=== PATIENT | female | born 1950 | race Caucasian/White ===

== ENCOUNTER 2020-06-03 06:04 | Outpatient (REF) | payer MEDICARE, SELFPAY ==
[2020-06-03 11:11] LABS: Hematocrit 37.6 % (37-47); Hemoglobin 11.9 g/dl (12.0-16.0); Mean Corpuscular HGB Conc 31.6 g/dl (31.0-35.0); Mean Corpuscular Hemoglobin 29.7 pg (27.0-33.0); Mean Corpuscular Volume 93.8 fL (80-98); Mean Platelet Volume 11.8 fL (9.4-12.3); Platelet Count 187 X10*3/uL (160-400); Red Blood Count 4.01 X10*6/uL (4.20-5.50); Red Cell Distribution Width 12.3 % (11.0-16.0); White Blood Count 5.9 X10*3/uL (4.8-10.8)
[2020-06-03 11:28] LABS: Glucose Urine UA NEG (NEG); Leukocyte Esterase Urine NEG (NEG); Nitrite Urine NEG (NEG); Specific Gravity - Urine 1.015 (1.005-1.025); Urine Blood NEG (NEG); Urine Ketones NEG (NEG); Urine Protein NEG (NEG-TRACE)
[2020-06-03 11:34] LABS: Appearance Urine CLEAR; Color Urine YELLOW
[2020-06-03 11:41] LABS: Alanine Aminotransferase 22 U/L (0-31); Albumin Level 4.2 g/dL (3.5-5.0); Alkaline Phosphatase 57 U/L (39-117); Anion Gap 11 (12-20); Aspartate Amino Transferase 22 U/L (5-31); Bilirubin Total 0.4 mg/dL (0.0-1.0); Blood Urea Nitrogen 14 mg/dL (9-16); Calcium 9.4 mg/dL (8.4-10.2); Carbon Dioxide 31 mmol/L (22-29); Chloride 104 mmol/L (96-108); Cholesterol 187 mg/dL; Estimated Glomerular Filt Rate > 60; Glucose Fasting 108 mg/dL (60-99); HDL Cholesterol 67 mg/dL; LDL Cholesterol Calculated 98 mg/dl; Potassium 4.2 mmol/l (3.3-5.1); Sodium 142 mmol/L (135-145); Total Protein 6.2 g/dL (6.5-8.0); Triglycerides 114 mg/dL
[2020-06-03 12:07] LABS: Thyroid Stimulating Hormone 1.44 mIU/mL (0.32-4.0); Vitamin D 25-OH Total 41.1 ng/mL (>30)
== END 2020-06-03 06:05 | disposition home or self-care (01) ==
LOC: HO.HMGCLDS 06:04
PROVIDERS: PCP Internal Medicine; Visit Provider Internal Medicine
DX: Z00.00 Encounter for general adult medical examination without abnormal findings (principal); F32.9 Major depressive disorder, single episode, unspecified; M85.80 Other specified disorders of bone density and structure, unspecified site; E78.5 Hyperlipidemia, unspecified
CPT/HCPCS: 36415; 80053; 80061; 81003; 82306; 84443; 85027

== ENCOUNTER 2022-08-24 08:10 | Outpatient (REF) | payer MEDICARE, SELFPAY ==
[2022-08-24 11:13] LABS: MANUAL DIFF FLAG NO
[2022-08-24 11:29] LABS: Basophils Percent Auto 0.6 % (0-2); Eosinophils Absolute Auto 0.1 X10*3/uL (0.0-0.4); Eosinophils Percent Auto 2.1 % (0-4); Hematocrit 39.2 % (37.0-47.0); Hemoglobin 12.7 g/dl (12.0-16.0); Imm Gran Abs Auto 0.06 X10*3/uL (0.00-0.03); Lymphocytes Percent Auto 31.3 % (20-40); Mean Corpuscular HGB Conc 32.4 g/dl (31.0-35.0); Mean Corpuscular Hemoglobin 29.9 pg (27.0-33.0); Mean Corpuscular Volume 92.2 fL (80.0-98.0); Mean Platelet Volume 11.6 fL (9.4-12.3); Monocytes Absolute Auto 0.6 X10*3/uL (0.1-1.2); Monocytes Percent Auto 9.1 % (2-11); Neutrophils Absolute Auto 3.5 x10*3/uL (2.0-8.3); Neutrophils Percent Auto 55.9 % (45-73); Platelet Count 247 X10*3/uL (160-400); Red Blood Count 4.25 X10*6/uL (4.20-5.50); White Blood Count 6.3 X10*3/uL (4.8-10.8)
[2022-08-24 13:25] LABS: Alanine Aminotransferase 38 U/L (0-31); Albumin Level 4.2 g/dL (3.5-5.0); Alkaline Phosphatase 61 U/L (39-117); Anion Gap 11 (12-20); Aspartate Amino Transferase 27 U/L (5-31); Bilirubin Total 0.5 mg/dL (0.0-1.0); Blood Urea Nitrogen 18 mg/dL (9-16); Calcium 9.1 mg/dL (8.4-10.2); Carbon Dioxide 31 mmol/L (22-29); Chloride 103 mmol/L (96-108); Cholesterol 153 mg/dL; Estimated Glomerular Filt Rate > 60; Glucose Fasting 126 mg/dL (60-99); HDL Cholesterol 48 mg/dL; LDL Cholesterol Calculated 88 mg/dl; Potassium 4.3 mmol/L (3.3-5.1); Sodium 141 mmol/L (135-145); TSH reflex Free T4 0.81 uIU/mL (0.32-4.0); Total Protein 6.2 g/dL (6.5-8.0); Triglycerides 85 mg/dL; Vitamin D 25-OH Total 44.7 ng/mL (>30)
== END 2022-08-24 08:11 | disposition home or self-care (01) ==
LOC: HO.HMGCLDS 08:10
PROVIDERS: PCP Internal Medicine; Visit Provider Internal Medicine
DX: M85.80 Other specified disorders of bone density and structure, unspecified site (principal); E78.5 Hyperlipidemia, unspecified; E55.9 Vitamin D deficiency, unspecified
CPT/HCPCS: 36415; 80053; 80061; 82306; 84443; 85025

== ENCOUNTER 2022-09-13 11:31 | Outpatient (REF) | payer MEDICARE, SELFPAY ==
--- NOTE | ~2022-09-13 | US_ITS ---
EXAMINATION: US THYROID CLINICAL INFORMATION: Nontoxic single thyroid nodule. COMPARISON: Ultrasound thyroid 04/19/2018. TECHNIQUE: Linear transducer grayscale and color Doppler examination with attention to the region of the thyroid. FINDINGS: SIZE: Measurements of the thyroid lobes and nodules are given in sagittal, anteroposterior and transverse dimensions respectively. Right Thyroid Lobe: 4.18 x 1.19 x 1.68 cm, volume 4.35 mL. Previously 4.3 x 1.5 x 1.8 cm, volume 6.1 mL. Parenchyma: The gland echotexture is heterogeneous. Thyroid vascularity is increased. Left Thyroid Lobe: 4.50 x 1.19 x 1.42 cm, volume 4.0 mL. Previously 3.7 x 1.3 x 1.4 cm, volume 3.5 mL. Parenchyma: The gland echotexture is heterogeneous. Thyroid vascularity is increased. Isthmus: 0.21 cm in maximum AP dimension. Previously 0.20 cm. Estimated total number of nodules greater than or equal to 1 cm: 0. [place] nodules are described as follows: 1. Location: Right superior. Size: 0.63 x 0.58 x 0.65 cm, volume 0.12 mL. Previously: 0.62 x 0.40 x 0.57 cm, volume 0.07 mL. Nodule characteristics: Composition: Spongiform (0). Echogenicity: Anechoic (0). Shape: Not taller than wide (0). Margins: Smooth (0). Echogenic Foci: None (0). ACR TI-RADS total points: 0 ACR TI-RADS category: 1 Significant change in size (>/= 20% in 2 dimensions and minimal increase of 2 mm or 50% or greater increase in volume): None Change in features: None . Change in ACR TI-RADS risk category: Not applicable 2. Location: Right mid. Size: 0.83 x 0.61 x 0.75 cm, volume 0.20 mL. Previously: 0.41 x 0.34 x 0.48 cm, volume 0.03 mL. Nodule characteristics: Composition: Spongiform (0). Echogenicity: Anechoic (0). Shape: Not taller than wide (0). Margins: Smooth (0). Echogenic Foci: None (0). ACR TI-RADS total points: 0 ACR TI-RADS category: 1 Significant change in size (>/= 20% in 2 dimensions and minimal increase of 2 mm or 50% or greater increase in volume): None Change in features: None Change in ACR TI-RADS risk category: Not applicable 3. Location: Right inferior. Size: 0.59 x 0.60 x 0.74 cm, volume 0.14 mL. Previously: 0.70 x 0.50 x 0.70 cm, volume 0.13 mL. Nodule characteristics: Composition: Spongiform (0). Echogenicity: Anechoic (0). Shape: Not taller than wide (0). Margins: Smooth (0). Echogenic Foci: None (0). ACR TI-RADS total points: 0 ACR TI-RADS category: 1 Significant change in size (>/= 20% in 2 dimensions and minimal increase of 2 mm or 50% or greater increase in volume): None Change in features: None Change in ACR TI-RADS risk category: Not applicable 4. Location: Left mid. New. Size: 0.58 x 0.30 x 0.51 cm, volume 0.05 mL. Previously: Not seen on the previous study. Nodule characteristics: Composition: Spongiform (0). Echogenicity: Anechoic (0). Shape: Not taller than wide (0). Margins: Smooth (0). Echogenic Foci: None (0). ACR TI-RADS total points: 0 ACR TI-RADS category: 1 5. Location: Left mid lateral. New. Size: 0.35 x 0.20 x 0.40 cm, volume 0.01 mL. Previously: Not seen on the previous study. Nodule characteristics: Composition: Spongiform (0). Echogenicity: Anechoic (0). Shape: Not taller than wide (0). Margins: Smooth (0). Echogenic Foci: None (0). ACR TI-RADS total points: 0 ACR TI-RADS category: 1 NODES: No lymphadenopathy is seen in the tissue surrounding the thyroid gland. US/US thyroid IMPRESSION: Heterogeneous slightly hypervascular thyroid gland likely hypothyroidism. Bilateral nonsuspicious subcentimeter thyroid nodules. TR1 (0 point) and TR 2 (2 points). TR4 (4-6 points): FNA if more than or equal to 1.5 cm in maximum dimension, followup ultrasound in 1, 2, 3 and 5 years if 1 to 1.4 cm in maximum dimension. TR5 (more than or equal to 7 points): FNA if more than or equal to 1 cm in maximum dimension, followup ultrasound every year for 5 years if 0.5 to 0.9 cm in maximum dimension.
== END 2022-09-13 11:32 | disposition home or self-care (01) ==
LOC: HO.HMGCX 11:31
PROVIDERS: PCP Internal Medicine; Visit Provider Internal Medicine
DX: E04.1 Nontoxic single thyroid nodule (principal)
CPT/HCPCS: 76536

== ENCOUNTER 2022-10-26 07:10 | Outpatient (REF) | payer MEDICARE, SELFPAY ==
[2022-10-26 11:25] LABS: Estimated Average Glucose 131 mg/dL; Hemoglobin A1C 149.4106 umol/L; Hemoglobin A1c % 6.2 %
[2022-10-26 11:26] LABS: Alanine Aminotransferase 20 U/L (0-31); Albumin Level 4.1 g/dL (3.5-5.0); Alkaline Phosphatase 58 U/L (39-117); Anion Gap 10 (12-20); Aspartate Amino Transferase 23 U/L (5-31); Bilirubin Total 0.6 mg/dL (0.0-1.0); Blood Urea Nitrogen 16 mg/dL (9-16); Calcium 9.5 mg/dL (8.4-10.2); Carbon Dioxide 31 mmol/L (22-29); Chloride 106 mmol/L (96-108); Estimated Glomerular Filt Rate > 60; Glucose Fasting 126 mg/dL (60-99); Potassium 4.4 mmol/L (3.3-5.1); Sodium 143 mmol/L (135-145)
== END 2022-10-26 07:11 | disposition home or self-care (01) ==
LOC: HO.HMGCLDS 07:10
PROVIDERS: PCP Internal Medicine; Visit Provider Internal Medicine
DX: R73.9 Hyperglycemia, unspecified (principal)
CPT/HCPCS: 36415; 80053; 83036

== ENCOUNTER 2023-03-16 06:35 | Outpatient (REF) | payer MEDICARE, SELFPAY ==
[2023-03-16 11:50] LABS: Estimated Average Glucose 108 mg/dL; Hemoglobin A1c % 5.4 %
[2023-03-16 12:11] LABS: Alanine Aminotransferase 22 U/L (0-31); Albumin Level 4.2 g/dL (3.5-5.0); Alkaline Phosphatase 62 U/L (39-117); Aspartate Amino Transferase 21 U/L (5-31); Bilirubin Total 0.8 mg/dL (0.0-1.0); Blood Urea Nitrogen 19 mg/dL (9-16); Calcium 9.9 mg/dL (8.4-10.2); Chloride 105 mmol/L (96-108); Cholesterol 155 mg/dL; Estimated Glomerular Filt Rate > 60; Glucose Fasting 104 mg/dL (60-99); HDL Cholesterol 68 mg/dL; LDL Cholesterol Calculated 73 mg/dl; Potassium 3.9 mmol/L (3.3-5.1); Sodium 141 mmol/L (135-145); Total Protein 6.5 g/dL (6.5-8.0); Triglycerides 73 mg/dL
[2023-03-16 12:29] LABS: TSH reflex Free T4 1.86 uIU/mL (0.32-4.0)
[2023-03-16 12:45] LABS: Creatinine Urine 126.27 mg/dL; Microalbum/Creatinine Ratio Ur 13.4 ug/mg cr
[2023-03-16 18:46] LABS: Carbon Dioxide 25 mmol/L (22-29)
== END 2023-03-16 06:36 | disposition home or self-care (01) ==
LOC: HO.HMGCLDS 06:35
PROVIDERS: PCP Internal Medicine; Visit Provider Internal Medicine
DX: E78.5 Hyperlipidemia, unspecified (principal); R73.9 Hyperglycemia, unspecified
CPT/HCPCS: 36415; 80053; 80061; 82043; 83036; 84443

== ENCOUNTER 2023-03-17 10:22 | Outpatient (AMB) | payer MEDICARE, SELFPAY ==
[2023-03-17 10:51] VITALS: BMI 19.3
--- NOTE | 2023-03-17 10:51 | A.OFFVIS_ITS ---
Intake VS Expanded 03/17/23 10:51 03/17/23 11:00 Height 5 ft 5 in 5 ft 5 in Weight 115 lb 11.883 oz 116 lb BMI 19.3 19.3 Intake Visit Reasons: Hyperglycemia Allergies naproxen Allergy (Unknown, Verified 03/25/23 14:27) rash acetaminophen [From Percocet] Allergy (Verified 03/25/23 14:27) Nausea oxycodone [From Percocet] Allergy (Verified 03/25/23 14:27) Nausea HPI Nutrition Presentation Details Pt presents for MNT for Hyperglycemia Pt reports working on reducing carbs however now losing weight . Makes own meals and pastries. Pastries are typically combination of nuts/oats/fruit or honey for flavor meal pattern reports having breakfast (oatmeal/nuts or eggs on whole wheat bread or yogurt nuts, omitting lunch , dinner consist of sweet potato/baked chicken and milk or yogurt or fruit. Reports keeping physically active has question regarding label ITE-Sstegtw-Th.Jeor Equation Height 5 ft 5 in Weight 116 lb Resting Metabolic Rate 1047.20 Calculated Activity Level Mild Activity Calories Needed to Maintain Weight 1439.90 Diagnosis Nutrition problem #1 unintended weight loss As related to (etiology) #1 inadequate oral intake As evidenced by (sign/symptom) #1 food recall and weight loss (10 lb in 3 months (from 125 lbs to 116 lbs)) Most Recent Diabetes Results: Microalb/Creat Ratio 13.4 ug/mg cr 03/16/23 Cholesterol 155 mg/dL 03/16/23 HDL Cholesterol 68 mg/dL 03/16/23 Triglycerides 73 mg/dL 03/16/23 Creatinine 0.64 mg/dL (0.5-1.4) 03/16/23 Blood Urea Nitrogen 19 mg/dL (9-16) H 03/16/23 Sodium 141 mmol/L (135-145) 03/16/23 Potassium 3.9 mmol/L (3.3-5.1) 03/16/23 Chloride 105 mmol/L (96-108) 03/16/23 Carbon Dioxide 25 mmol/L (22-29) 03/16/23 Calcium 9.9 mg/dL (8.4-10.2) 03/16/23 AST 21 U/L (5-31) 03/16/23 ALT 22 U/L (0-31) 03/16/23 Total Protein 6.5 g/dL (6.5-8.0) 03/16/23 Albumin 4.2 g/dL (3.5-5.0) 03/16/23 [facility] Medical History Annual physical exam Anxiety Eustachian tube dysfunction History of mammogram Hyperlipidemia IBS (irritable bowel syndrome) Migraine Normal colonoscopy Normal Pap smear Osteopenia determined by x-ray Thyroid nodule Vitamin D deficiency Surgical History H/O colonoscopy History of eyelid surgery Family History Father Diabetes mellitus Mother Breast cancer Alzheimer disease History of mastectomy Social History Housing: House Patient Tobacco Use Status: Never used Tobacco e-Cigarette/Vaping Use: Never Used Current occupational status: employed Cognitive needs: No Hearing needs: No Vision needs: Yes Assessment & Plan Assessment & Plan (1) Hyperglycemia: Code(s): R73.9 - Hyperglycemia, unspecified Plan: wt: 53 kg Est kcal needs as per MSJ: 1500 + 250/500 (40% carb, 30% protein/fat) Est fluid needs as per 25-30 ml/d: 1300- 1600 Est prot per day as per 1-1.2 g/kg bw: 53- 63 Recommend fiber intake : 8-10 g per day and gradually increase to 25-28 g per day for women and 35-38 g for men or as tolerated Recommend sodium intake per day : less than 2000 mg Educated patient on: ( R = reviewed V = verbalizes understanding N/R = needs review N/A = not applicable * Food sources of carbohydrate, adequate serving sizes and its role in various health conditions: R V * Differences between complex carbohydrates a simple carbohydrates, role of fiber in diet: R V * Differences between types of fats and role in diet (mono on saturated fat fatty acids, saturated fatty acids, trans fats): R ,v * Food sources of sodium in salt and healthy modifications for heart health in kidney health: R * Vitamins and minerals: R * Healthy plate method concept: R V * Physical activity: Benefits a precaution: R V * Dietary prevention of Hyperglycemia: R V Patient Instructions: Do not skip lunch : have glucerna or 1/2 sandw with vegetables Include a serving of protein with a serving of carb as snack Include MUFA in your diet, add 1 tsp of olive oil to 2 of your meals Coding Level of Care Code Nutr Indiv Intake (38589) Diagnoses Hyperglycemia R73.9 Time Spent (min) 40
[2023-03-29 11:24] VITALS: BMI 19.3
== END 2023-03-17 11:43 | disposition home or self-care (01) ==
PROVIDERS: PCP Internal Medicine; Visit Provider Dietitian, Registered
DX: R73.9 Hyperglycemia, unspecified (principal)

== ENCOUNTER → 2023-03-17 10:22 | Outpatient (BNVA) | payer MEDICARE, SELFPAY | PROVIDERS: PCP Internal Medicine; Visit Provider Dietitian, Registered | DX: R73.9 Hyperglycemia, unspecified (principal) | CPT/HCPCS: 97802 ==

== ENCOUNTER 2023-03-25 13:53 | Outpatient (AMB) | payer MEDICARE, SELFPAY ==
[2023-03-25 14:18] VITALS: BP 104/62; PULSE 98; O2SAT 97; BMI 19.1
--- NOTE | 2023-03-25 14:18 | A.OFFPC_ITS ---
Vital Signs 03/25/23 14:18 Height 5 ft 5 in Weight 115 lb BMI 19.1 BP 104/62 Blood Pressure Location Lt brachial Position Sitting Pulse 98 Pulse Source Pulse Oximeter Pulse Oximetry (%) 97 Oxygen Delivery Method Room Air Intake Visit Reasons: 4 Month follow up after labs dont Intake Note: Pt is here today for 4 months follow up visit on labs. Allergies naproxen Allergy (Unknown, Verified 03/25/23 14:27) rash acetaminophen [From Percocet] Allergy (Verified 03/25/23 14:27) Nausea oxycodone [From Percocet] Allergy (Verified 03/25/23 14:27) Nausea Medication List - Last Reconciled 03/25/23 by Leeanne Garcia MD aspirin 81 mg PO DAILY atorvastatin 20 mg PO DAILY cholecalciferol (vitamin D3) 25 mcg PO DAILY ciclopirox 8% 1 appl topical BEDTIME 4 weeks clonazepam 1 mg PO BEDTIME diphenoxylate-atropine 2.5-0.025 mg (Lomotil) 1 tab PO QID PRN duloxetine 120 mg PO DAILY ondansetron 4 mg PO Q8H PRN propranolol ER 60 mg PO DAILY pseudoephedrine HCl (Sudafed) 30 mg PO Q4-6H PRN sumatriptan 20 mg/actuation 20 mg intranasal Q2H triamcinolone acetonide 0.1% 1 appl topical DAILY turmeric root extract 500 mg PO DAILY [ultimate digestive probiotic 35 billion one capsule a day ] Tobacco use date assessed: 03/25/23 Fall risk assessment: No Falls in past year Last assessed Fall Risk: 03/25/23 Dental Screening Dental Screen Date: 03/25/23 Did you have a dental visit in the last 12 months?: Yes Did you have a dental problem in the last 6 months where you did not have access to dental care?: No Was dental information given to patient?: Patient has dentist HPI 4 Month follow up after labs dont HPI Details Pt presents for f/u diet controlled DM 2, improved. Pt has been atorvastatin for hyperlipidemia. Patient reports increased bruising since taking a baby aspirin. Patient had an episode of chest pain with elevated troponin but cardiac catheterization showed normal coronaries and no wall motion abnormalities. [facility] Medical History Annual physical exam Anxiety Eustachian tube dysfunction History of mammogram Hyperlipidemia IBS (irritable bowel syndrome) Migraine Normal colonoscopy Normal Pap smear Osteopenia determined by x-ray Thyroid nodule Vitamin D deficiency Surgical History H/O colonoscopy History of eyelid surgery Family History Father Diabetes mellitus Mother Breast cancer Alzheimer disease History of mastectomy Social History Housing: House Patient Tobacco Use Status: Never used Tobacco e-Cigarette/Vaping Use: Never Used Current occupational status: employed Cognitive needs: No Hearing needs: No Vision needs: Yes Questionnaire Thrive Questionnaire Date Thrive assessed: 08/31/22 AUDIT C Alcohol Use Questionnaire (AUDIT-C) 1. How often do you have a drink containing alcohol?: Monthly or less 2. How many drinks containing alcohol do you have on a typical day when you are drinking?: 1 or 2 3. How often do you have six or more drinks on one occasion?: Never Total Score: 1 DANNA-7 AMB Questionnaire DANNA-7 Date DANNA - 7 assessed: 08/31/22 Feeling nervous, anxious, or on edge: 0 = Not at all Not being able to stop or control worryin = Not at all Worrying too much about different things: 0 = Not at all Trouble relaxin = Not at all Being so restless that it is hard to sit still: 0 = Not at all Becoming easily annoyed or irritable: 0 = Not at all Feeling afraid as if something awful might happen: 0 = Not at all Total DANNA-7 score (0-4 normal; 5-9 mild; 10-14 moderate; 15-21 severe): 0 Source: Developed by Drs. New Farias, Kandis Gifford, Frankie Snell and colleagues, with an educational justine from [employer]. Review of Systems Const All systems reviewed & are unremarkable except as noted in HPI and below Reports no additional complaints Eyes Reports no additional complaints ENT Reports no additional complaints Card Reports no additional complaints Resp Reports no additional complaints GI Reports no additional complaints Reports no additional complaints Musc Reports no additional complaints Physical exam (Primary Care) Vital Signs: Last Vital Signs Pulse 98 03/25/23 14:18 BP 104/62 03/25/23 14:18 Pulse Ox 97 03/25/23 14:18 Oxygen Delivery Method Room Air 03/25/23 14:18 BMI result Body Mass Index 19.1 Tobacco/Smoking Status: Tobacco use Status Tobacco use date assessed 03/25/23 03/25/23 14:29 Patient Tobacco Use Status Never used Tobacco 03/25/23 14:29 e-Cigarette/Vaping Use Never Used 03/25/23 14:18 Thrive Assessment: Date of Thrive Assessment Date Thrive assessed 08/31/22 03/25/23 14:18 Const General: no acute distress HENMT Head: Yes normal to inspection Ears: hearing grossly normal bilaterally Mouth: Normal oral and palatal mucosa present Throat: Yes posterior oropharynx normal Eyes General: appearance normal, both eyes and all related structures Neck Neck: Yes no lymphadenopathy and Yes supple Resp Effort & Inspection: normal respiratory effort Auscultation: clear to auscultation bilaterally Cardio Rhythm: regular rhythm Heart sounds: S1 normal heart sound present and S2 normal heart sound present GI Inspection: Yes normal to inspection Palpation (GI): Soft to palpation Percussion: Yes normal to percussion Auscultation: normal bowel sounds Assessment and Plan Assessment & Plan (1) Hyperglycemia: Code(s): R73.9 - Hyperglycemia, unspecified Plan: A1C is 5.4, cont ADA diet and f/u in 6 months with labs before (2) Hyperlipidemia: Code(s): E78.5 - Hyperlipidemia, unspecified Plan: cont Lipitor (3) Elevated troponin: Comment: nl coronaries, nl EF, no wall motion changes 02/18 f/u Dr. Chavez Code(s): R77.8 - Other specified abnormalities of plasma proteins Plan: pt will stop ASA because of easy bruising Orders: Orders Comprehensive [place]. Panel Fast 6 Months E78.5 - Hyperlipidemia, unspecified, R73.9 - Hyperglycemia, unspecified Hemoglobin A1c 6 Months E78.5 - Hyperlipidemia, unspecified, R73.9 - Hyperglycemia, unspecified Lipid Panel 6 Months E78.5 - Hyperlipidemia, unspecified, R73.9 - Hyperglycemia, unspecified Complete Blood Count Auto Diff 6 Months E78.5 - Hyperlipidemia, unspecified, R73.9 - Hyperglycemia, unspecified Coding Level of Care Code Est Pt Level 4 (14405) Diagnoses Hyperglycemia R73.9 Hyperlipidemia E78.5 Elevated troponin R77.8
== END 2023-03-25 14:54 | disposition home or self-care (01) ==
PROVIDERS: Visit Provider Internal Medicine
DX: R73.9 Hyperglycemia, unspecified (principal); E78.5 Hyperlipidemia, unspecified; R77.8 Other specified abnormalities of plasma proteins
CPT/HCPCS: 99214

== ENCOUNTER 2023-06-20 14:26 | Outpatient (AMB) | payer MEDICARE, SELFPAY ==
[2023-06-20 14:31] VITALS: BMI 19.6
--- NOTE | 2023-06-20 14:31 | A.OFFVIS_ITS ---
Intake VS Expanded 06/20/23 14:31 Height 5 ft 5 in Weight 117 lb 8.102 oz BMI 19.6 Intake Visit Reasons: T2DM Allergies naproxen Allergy (Unknown, Verified 03/25/23 14:27) rash acetaminophen [From Percocet] Allergy (Verified 03/25/23 14:27) Nausea oxycodone [From Percocet] Allergy (Verified 03/25/23 14:27) Nausea HPI Nutrition Presentation Details Pt presents for MNT f/u appt for Hyperglycemia Pt reports working on looking at total carb and balancing with healthy fats and protein vs looking at total calories. Pt brings nutrition facts of various food products to discuss Most Recent Diabetes Results: Microalb/Creat Ratio 13.4 ug/mg cr 03/16/23 Cholesterol 155 mg/dL 03/16/23 HDL Cholesterol 68 mg/dL 03/16/23 Triglycerides 73 mg/dL 03/16/23 Creatinine 0.64 mg/dL (0.5-1.4) 03/16/23 Blood Urea Nitrogen 19 mg/dL (9-16) H 03/16/23 Sodium 141 mmol/L (135-145) 03/16/23 Potassium 3.9 mmol/L (3.3-5.1) 03/16/23 Chloride 105 mmol/L (96-108) 03/16/23 Carbon Dioxide 25 mmol/L (22-29) 03/16/23 Calcium 9.9 mg/dL (8.4-10.2) 03/16/23 AST 21 U/L (5-31) 03/16/23 ALT 22 U/L (0-31) 03/16/23 Total Protein 6.5 g/dL (6.5-8.0) 03/16/23 Albumin 4.2 g/dL (3.5-5.0) 03/16/23 [facility] Medical History Annual physical exam Anxiety Eustachian tube dysfunction History of mammogram Hyperlipidemia IBS (irritable bowel syndrome) Migraine Normal colonoscopy Normal Pap smear Osteopenia determined by x-ray Thyroid nodule Vitamin D deficiency Surgical History H/O colonoscopy History of eyelid surgery Family History Father Diabetes mellitus Mother Breast cancer Alzheimer disease History of mastectomy Social History Housing: House Patient Tobacco Use Status: Never used Tobacco e-Cigarette/Vaping Use: Never Used Current occupational status: employed Cognitive needs: No Hearing needs: No Vision needs: Yes Assessment & Plan Assessment & Plan (1) Hyperglycemia: Code(s): R73.9 - Hyperglycemia, unspecified Plan: wt: 53 kg Est kcal needs as per MSJ: 1500 + 250/500 (40% carb, 30% protein/fat) Est fluid needs as per 25-30 ml/d: 1300- 1600 Est prot per day as per 1-1.2 g/kg bw: 53- 63 Recommend fiber intake : 8-10 g per day and gradually increase to 25-28 g per day for women and 35-38 g for men or as tolerated Recommend sodium intake per day : less than 2000 mg Educated patient on: ( R = reviewed V = verbalizes understanding N/R = needs review N/A = not applicable * Food sources of carbohydrate, adequate serving sizes and its role in various health conditions: R V * Differences between complex carbohydrates a simple carbohydrates, role of fiber in diet: R V * Differences between types of fats and role in diet (mono on saturated fat fatty acids, saturated fatty acids, trans fats): R ,v * Food sources of sodium in salt and healthy modifications for heart health in kidney health: R * Vitamins and minerals: R * Healthy plate method concept: R V * Physical activity: Benefits a precaution: R V * Dietary prevention of Hyperglycemia: R V Patient Instructions: Continue working on having 3 balanced meals per day following healthy plate method include 1-2 servings of protein with 1-2 serving on MUFA at snack (ex yogurt with fruit or wheat germ or fruit and nut butter and cup of milk , it is ok to include cow's milk vs almond milk for it s protein content Coding Level of Care Code Nutr Indiv Subseq (13104) Diagnoses Hyperglycemia R73.9 Time Spent (min) 30
== END 2023-06-20 15:21 | disposition home or self-care (01) ==
PROVIDERS: PCP Internal Medicine; Visit Provider Dietitian, Registered
DX: R73.9 Hyperglycemia, unspecified (principal)

== ENCOUNTER → 2023-06-20 14:26 | Outpatient (BNVA) | payer MEDICARE, SELFPAY | PROVIDERS: PCP Internal Medicine; Visit Provider Dietitian, Registered | DX: R73.9 Hyperglycemia, unspecified (principal) | CPT/HCPCS: 97803 ==

== ENCOUNTER 2023-08-26 07:36 | Outpatient (REF) | payer MEDICARE, SELFPAY ==
[2023-08-26 11:40] LABS: MANUAL DIFF FLAG NO
[2023-08-26 11:44] LABS: Basophils Absolute Auto 0.1 X10*3/uL (0.0-0.2); Basophils Percent Auto 1.1 % (0-2); Eosinophils Absolute Auto 0.2 X10*3/uL (0.0-0.4); Eosinophils Percent Auto 4.6 % (0-4); Hematocrit 39.7 % (37.0-47.0); Hemoglobin 12.6 g/dl (12.0-16.0); Imm Gran Abs Auto 0.01 X10*3/uL (0.00-0.03); Imm Gran Pct Auto 0.2 % (0.0-0.4); Mean Corpuscular HGB Conc 31.7 g/dl (31.0-35.0); Mean Corpuscular Hemoglobin 29.4 pg (27.0-33.0); Mean Corpuscular Volume 92.8 fL (80.0-98.0); Mean Platelet Volume 12.6 fL (9.4-12.3); Monocytes Absolute Auto 0.4 X10*3/uL (0.1-1.2); Monocytes Percent Auto 8.7 % (2-11); Neutrophils Absolute Auto 1.9 x10*3/uL (2.0-8.3); Neutrophils Percent Auto 42.4 % (45-73); Platelet Count 184 X10*3/uL (160-400); Red Blood Count 4.28 X10*6/uL (4.20-5.50); Red Cell Distribution Width 12.9 % (11.0-16.0); White Blood Count 4.6 X10*3/uL (4.8-10.8)
[2023-08-26 12:11] LABS: Estimated Average Glucose 117 mg/dL; Hemoglobin A1c % 5.7 % (<6.0)
[2023-08-26 12:22] LABS: Alanine Aminotransferase 26 U/L (0-31); Albumin Level 4.1 g/dL (3.5-5.0); Alkaline Phosphatase 58 U/L (39-117); Anion Gap 8 (12-20); Aspartate Amino Transferase 29 U/L (5-31); Bilirubin Total 0.8 mg/dL (0.0-1.0); Blood Urea Nitrogen 18 mg/dL (9-16); Calcium 9.3 mg/dL (8.4-10.2); Carbon Dioxide 31 mmol/L (22-29); Chloride 106 mmol/L (96-108); Cholesterol 159 mg/dL (<200); Estimated Glomerular Filt Rate > 60; Glucose Fasting 102 mg/dL (60-99); HDL Cholesterol 73 mg/dL (>40); LDL Cholesterol Calculated 74 mg/dL (<100); Potassium 3.7 mmol/L (3.3-5.1); Sodium 141 mmol/L (135-145); Total Protein 6.4 g/dL (6.5-8.0); Triglycerides 63 mg/dL (<150)
== END 2023-08-26 07:37 | disposition home or self-care (01) ==
LOC: HO.HMGCLDS 07:36
PROVIDERS: PCP Internal Medicine; Visit Provider Internal Medicine
DX: R73.9 Hyperglycemia, unspecified (principal); E78.5 Hyperlipidemia, unspecified
CPT/HCPCS: 36415; 80053; 80061; 83036; 85025

== ENCOUNTER 2023-09-02 12:55 | Outpatient (AMB) | payer MEDICARE, SELFPAY ==
[2023-09-02 13:02] VITALS: BP 106/70; PULSE 57; O2SAT 98; BMI 19.1
--- NOTE | 2023-09-02 13:02 | MHC.PC.OV ---
Vital Signs 09/02/23 13:02 Height 5 ft 5 in Weight 115 lb BMI 19.1 BP 106/70 Blood Pressure Location Lt brachial Position Sitting Pulse 57 Pulse Source Pulse Oximeter Pulse Oximetry (%) 98 Oxygen Delivery Method Room Air Intake Visit Reasons: annual PE Intake Note: Pt is here today for PE. Allergies naproxen Allergy (Unknown, Verified 09/02/23 13:05) rash acetaminophen [From Percocet] Allergy (Verified 09/02/23 13:05) Nausea oxycodone [From Percocet] Allergy (Verified 09/02/23 13:05) Nausea Tobacco use date assessed: 09/02/23 Fall risk assessment: No Falls in past year Last assessed Fall Risk: 09/02/23 Dental Screening Dental Screen Date: 09/02/23 Did you have a dental visit in the last 12 months?: Yes Did you have a dental problem in the last 6 months where you did not have access to dental care?: No Was dental information given to patient?: Patient has dentist HPI annual PE HPI Details Pt presents for PE. PFS Medical History (Updated 09/02/23 @ 14:38 by Leeanne Garcia MD) Eustachian tube dysfunction Vitamin D deficiency Annual physical exam Osteopenia determined by x-ray Normal colonoscopy Normal Pap smear IBS (irritable bowel syndrome) Anxiety Thyroid nodule History of mammogram Hyperlipidemia Migraine Surgical History H/O colonoscopy History of eyelid surgery Family History Father Diabetes mellitus Mother Breast cancer Alzheimer disease History of mastectomy Social History Housing: House Patient Tobacco Use Status: Never used Tobacco e-Cigarette/Vaping Use: Never Used Current occupational status: employed Cognitive needs: No Hearing needs: No Vision needs: Yes Questionnaire PHQ-9 Over the last 2 weeks, how often have you been bothered by any of the following problems? 1. Little interest or pleasure in doing things: not at all 2. Feeling down, depressed, or hopeless: not at all 3. Trouble falling or staying asleep, or sleeping too much: not at all 4. Feeling tired or having little energy: not at all 5. Poor appetite or overeating: not at all 6. Feeling bad about yourself - or that you are a failure or have let yourself or your family down: not at all 7. Trouble concentrating on things, such as reading the newspaper or watching television: not at all 8. Moving or speaking so slowly that other people could have noticed. Or the opposite - being so fidgety or restless that you have been moving around a lot more than usual: not at all 9. Thoughts that you would be better off or of hurting yourself in some way: not at all Total score: 0 Depression Screening Interpretation: Negative Depression Screening Done: Yes Source: Developed by Drs. New Farias, Kandis Gifford, Frankie Snell and colleagues, with an educational justine from [email or web address]. Thrive Questionnaire Date Thrive assessed: 09/02/23 I am a: Patient What is your living situation today?: I have a steady place to live Within the past 12 months, did the food you bought not last and you didn't have the money to get more?: Never true Within the past 12 months, did you worry whether your food would run out before you got money to buy more?: Never true Do you have trouble paying for medicines?: No Do you have trouble getting transportation to medical appointments?: No Do you have trouble paying your heating and electricity bill?: No Do you have trouble taking care of your child, family member or friend?: No Do you have trouble with day-to-day activities such as bathing, preparing meals, shopping, managing finances, etc.?: No Are you currently unemployed and looking for a job?: No Are you interested in more education?: No Please select the resources that you would like help with: None AUDIT C Alcohol Use Questionnaire (AUDIT-C) 1. How often do you have a drink containing alcohol?: Monthly or less 3. How often do you have six or more drinks on one occasion?: Never Total Score: 1 DANNA-7 AMB Questionnaire DANNA-7 Date DANNA - 7 assessed: 09/02/23 Feeling nervous, anxious, or on edge: 0 = Not at all Not being able to stop or control worryin = Not at all Worrying too much about different things: 0 = Not at all Trouble relaxin = Not at all Being so restless that it is hard to sit still: 0 = Not at all Becoming easily annoyed or irritable: 0 = Not at all Feeling afraid as if something awful might happen: 0 = Not at all Total DANNA-7 score (0-4 normal; 5-9 mild; 10-14 moderate; 15-21 severe): 0 Source: Developed by Drs. New Farias, Kandis Gifford, Frankei Snell and colleagues, with an educational justine from [email or web address]. Review of Systems Const All systems reviewed & are unremarkable except as noted in HPI and below Reports no additional complaints Eyes Reports no additional complaints ENT Reports no additional complaints Card Reports no additional complaints Resp Reports no additional complaints GI Reports no additional complaints Physical exam (Primary Care) Vital Signs: Last Vital Signs Pulse 57 09/02/23 13:02 BP 106/70 09/02/23 13:02 Pulse Ox 98 09/02/23 13:02 Oxygen Delivery Method Room Air 09/02/23 13:02 BMI result Body Mass Index 19.1 Tobacco/Smoking Status: Tobacco use Status Tobacco use date assessed 09/02/23 09/02/23 13:08 Patient Tobacco Use Status Never used Tobacco 09/02/23 13:08 e-Cigarette/Vaping Use Never Used 09/02/23 13:08 PHQ-9: PHQ-9 Score PHQ-9: Total score 0 09/02/23 13:08 Depression Screening Interpretation: Negative Thrive Assessment: Date of Thrive Assessment Date Thrive assessed 09/02/23 09/02/23 13:08 Const General: no acute distress HENMT Head: Yes normal to inspection Ears: hearing grossly normal bilaterally Face and sinus: Yes normal facial exam Throat: Yes posterior oropharynx normal Eyes General: appearance normal, both eyes and all related structures Neck Neck: Yes no lymphadenopathy and Yes supple Resp Effort & Inspection: normal respiratory effort Auscultation: clear to auscultation bilaterally Cardio Rhythm: regular rhythm Heart sounds: S1 normal heart sound present and S2 normal heart sound present GI Inspection: Yes normal to inspection Palpation (GI): Soft to palpation Percussion: Yes normal to percussion Auscultation: normal bowel sounds Assessment and Plan Assessment & Plan (1) Hyperlipidemia: Code(s): E78.5 - Hyperlipidemia, unspecified Plan: Continue statin (2) Annual physical exam: Code(s): Z00.00 - Encounter for general adult medical examination without abnormal findings Plan: Well-balanced diet regular physical activity discussed with the patient. She will schedule mammogram and had a negative Cologuard August 2022 (3) Hyperglycemia: Comment: A1C 5.7 09/21 Code(s): R73.9 - Hyperglycemia, unspecified Plan: ADA diet increase physical activity discussed with the patient. Follow-up in 6 months with a fasting labs before including A1c (4) Elevated troponin: Comment: nl coronaries, nl EF, no wall motion changes 02/18 f/u Dr. Chavez Code(s): R77.8 - Other specified abnormalities of plasma proteins Plan: Continue statin and regular exercise (5) Normal colonoscopy: Comment: Dr. Shane, 2013, negative Cologuard 09/20 Orders: Orders Comprehensive [place]. Panel Fast 6 Months E78.5 - Hyperlipidemia, unspecified, R73.9 - Hyperglycemia, unspecified, Z00.00 - Encounter for general adult medical examination without abnormal findings Microalbumin, Random (w Creat) 6 Months E78.5 - Hyperlipidemia, unspecified, R73.9 - Hyperglycemia, unspecified, Z00.00 - Encounter for general adult medical examination without abnormal findings Hemoglobin A1c 6 Months E78.5 - Hyperlipidemia, unspecified, R73.9 - Hyperglycemia, unspecified, Z00.00 - Encounter for general adult medical examination without abnormal findings Complete Blood Count Auto Diff 6 Months E78.5 - Hyperlipidemia, unspecified, R73.9 - Hyperglycemia, unspecified, Z00.00 - Encounter for general adult medical examination without abnormal findings Lipid Panel 6 Months E78.5 - Hyperlipidemia, unspecified, R73.9 - Hyperglycemia, unspecified, Z00.00 - Encounter for general adult medical examination without abnormal findings Coding Level of Care Code Est Pt Prev Care >65y(36654) Diagnoses Hyperlipidemia E78.5 Annual physical exam Z00.00 Hyperglycemia R73.9 Elevated troponin R77.8 Normal colonoscopy
== END 2023-09-02 14:39 | disposition home or self-care (01) ==
PROVIDERS: PCP Internal Medicine; Visit Provider Internal Medicine
DX: E78.5 Hyperlipidemia, unspecified (principal); Z00.00 Encounter for general adult medical examination without abnormal findings; R73.9 Hyperglycemia, unspecified; R77.8 Other specified abnormalities of plasma proteins
CPT/HCPCS: 99397

== ENCOUNTER 2024-02-24 08:32 | Outpatient (REF) | payer MEDICARE, SELFPAY ==
[2024-02-24 11:19] LABS: MANUAL DIFF FLAG NO
[2024-02-24 11:23] LABS: Eosinophils Absolute Auto 0.1 X10*3/uL (0.0-0.4); Eosinophils Percent Auto 1.6 % (0-4); Hematocrit 38.4 % (37.0-47.0); Hemoglobin 12.4 g/dl (12.0-16.0); Imm Gran Abs Auto 0.01 X10*3/uL (0.00-0.03); Imm Gran Pct Auto 0.3 % (0.0-0.4); Lymphocytes Absolute Auto 1.5 X10*3/uL (1.2-4.9); Lymphocytes Percent Auto 38.1 % (20-40); Mean Corpuscular HGB Conc 32.3 g/dl (31.0-35.0); Mean Corpuscular Hemoglobin 29.7 pg (27.0-33.0); Mean Corpuscular Volume 91.9 fL (80.0-98.0); Mean Platelet Volume 12.5 fL (9.4-12.3); Monocytes Absolute Auto 0.4 X10*3/uL (0.1-1.2); Monocytes Percent Auto 9.2 % (2-11); Neutrophils Absolute Auto 1.9 x10*3/uL (2.0-8.3); Neutrophils Percent Auto 49.8 % (45-73); Platelet Count 164 X10*3/uL (160-400); Red Blood Count 4.18 X10*6/uL (4.20-5.50); Red Cell Distribution Width 12.8 % (11.0-16.0); White Blood Count 3.8 X10*3/uL (4.8-10.8)
[2024-02-24 11:43] LABS: Alanine Aminotransferase 29 U/L (0-31); Albumin Level 4.1 g/dL (3.5-5.0); Alkaline Phosphatase 52 U/L (39-117); Anion Gap 13 (12-20); Aspartate Amino Transferase 29 U/L (5-31); Bilirubin Total 0.6 mg/dL (0.0-1.0); Blood Urea Nitrogen 24 mg/dL (9-16); Calcium 9.4 mg/dL (8.4-10.2); Carbon Dioxide 28 mmol/L (22-29); Chloride 104 mmol/L (96-108); Cholesterol 151 mg/dL (<200); Estimated Glomerular Filt Rate > 60; Glucose Fasting 116 mg/dL (60-99); HDL Cholesterol 67 mg/dL (>40); LDL Cholesterol Calculated 73 mg/dL (<100); Potassium 4.1 mmol/L (3.3-5.1); Sodium 141 mmol/L (135-145); Total Protein 6.3 g/dL (6.5-8.0); Triglycerides 57 mg/dL (<150)
[2024-02-24 11:46] LABS: Estimated Average Glucose 117 mg/dL; Hemoglobin A1c % 5.7 % (<6.0)
[2024-02-24 11:57] LABS: Creatinine Urine 79.77 mg/dL; Microalbum/Creatinine Ratio Ur 11.2 ug/mg cr (<30)
== END 2024-02-24 08:33 | disposition home or self-care (01) ==
LOC: HO.HMGCLDS 08:32
PROVIDERS: PCP Internal Medicine; Visit Provider Internal Medicine
DX: Z00.00 Encounter for general adult medical examination without abnormal findings (principal); E78.5 Hyperlipidemia, unspecified; R73.9 Hyperglycemia, unspecified
CPT/HCPCS: 36415; 80053; 80061; 82043; 82570; 83036; 85025

== ENCOUNTER 2024-03-05 13:42 | Outpatient (AMB) | payer MEDICARE, SELFPAY ==
[2024-03-05 14:21] VITALS: BP 100/66; PULSE 58; O2SAT 98; BMI 18.6
--- NOTE | 2024-03-05 14:21 | MHC.PC.OV ---
Vital Signs 03/05/24 14:21 Height 5 ft 5 in Weight 112 lb BMI 18.6 BP 100/66 Blood Pressure Location Rt brachial Position Sitting Pulse 58 Pulse Source Pulse Oximeter Pulse Oximetry (%) 98 Oxygen Delivery Method Room Air Intake Visit Reasons: 6 month fu Intake Note: Pt is here today for her 6mo. f/u Allergies naproxen Allergy (Unknown, Verified 03/05/24 14:21) rash acetaminophen [From Percocet] Allergy (Verified 03/05/24 14:21) Nausea oxycodone [From Percocet] Allergy (Verified 03/05/24 14:21) Nausea Medication List - Last Reconciled 03/05/24 by Leeanne Garcia MD atorvastatin 20 mg PO DAILY cholecalciferol (vitamin D3) 25 mcg PO DAILY ciclopirox 8% 1 appl topical BEDTIME 4 weeks clonazepam 1 mg PO BEDTIME diphenoxylate-atropine 2.5-0.025 mg (Lomotil) 1 tab PO QID PRN duloxetine 120 mg PO DAILY ondansetron 4 mg PO Q8H PRN propranolol ER 60 mg PO DAILY sumatriptan 20 mg/actuation 20 mg intranasal Q2H triamcinolone acetonide 0.1% 1 appl topical DAILY turmeric root extract 500 mg PO DAILY [ultimate digestive probiotic 35 billion one capsule a day ] Tobacco use date assessed: 03/05/24 Fall risk assessment: No Falls in past year Last assessed Fall Risk: 03/05/24 Dental Screening Dental Screen Date: 03/05/24 Did you have a dental visit in the last 12 months?: Yes Did you have a dental problem in the last 6 months where you did not have access to dental care?: No Was dental information given to patient?: Patient has dentist HPI 6 month fu HPI Details Pt presents for f/u of hyperlipid and hyperglycemia. Pt has been following ADA diet and has been losing weight. [facility] Medical History (Updated 03/05/24 @ 15:28 by Leeanne Garcia MD) Eustachian tube dysfunction Vitamin D deficiency Annual physical exam Osteopenia determined by x-ray Normal colonoscopy Normal Pap smear IBS (irritable bowel syndrome) Anxiety Thyroid nodule History of mammogram Hyperlipidemia Migraine Surgical History H/O colonoscopy History of eyelid surgery Family History Father Diabetes mellitus Mother Breast cancer Alzheimer disease History of mastectomy Social History Housing: House Patient Tobacco Use Status: Never used Tobacco e-Cigarette/Vaping Use: Never Used Current occupational status: employed Cognitive needs: No Hearing needs: No Vision needs: Yes Questionnaire Thrive Questionnaire Date Thrive assessed: 09/02/23 DANNA-7 AMB Questionnaire DANNA-7 Date DANNA - 7 assessed: 09/02/23 Source: Developed by Drs. New Farias, Kandis Gifford, Frankie Snell and colleagues, with an educational justine from [employer]. Review of Systems Const All systems reviewed & are unremarkable except as noted in HPI and below Eyes Reports no additional complaints ENT Reports no additional complaints Card Reports no additional complaints Resp Reports no additional complaints GI Reports no additional complaints Reports no additional complaints Physical exam (Primary Care) Vital Signs: Last Vital Signs Pulse 58 03/05/24 14:21 BP 100/66 03/05/24 14:21 Pulse Ox 98 03/05/24 14:21 Oxygen Delivery Method Room Air 03/05/24 14:21 BMI result Body Mass Index 18.6 Tobacco/Smoking Status: Tobacco use Status Tobacco use date assessed 03/05/24 03/05/24 14:23 Patient Tobacco Use Status Never used Tobacco 03/05/24 14:23 e-Cigarette/Vaping Use Never Used 03/05/24 14:23 Thrive Assessment: Date of Thrive Assessment Date Thrive assessed 09/02/23 03/05/24 14:23 Const General: no acute distress HENMT Mouth: Normal oral and palatal mucosa present Eyes General: appearance normal, both eyes and all related structures Neck Neck: Yes supple Resp Effort & Inspection: normal respiratory effort Auscultation: clear to auscultation bilaterally Cardio Rhythm: regular rhythm Heart sounds: S1 normal heart sound present and S2 normal heart sound present GI Inspection: Yes normal to inspection Palpation (GI): Soft to palpation Percussion: Yes normal to percussion Auscultation: normal bowel sounds Assessment and Plan Assessment & Plan (1) Hyperlipidemia: Code(s): E78.5 - Hyperlipidemia, unspecified Plan: cont statin (2) Hyperglycemia: Comment: A1C 5.7 09/21 Code(s): R73.9 - Hyperglycemia, unspecified Plan: A1C is 5.7, cont ADA , increase caloric intake to prevent further weight loss discussed with the patient. Return in 6 months with a fasting labs before (3) Anxiety: Code(s): F41.9 - Anxiety disorder, unspecified Plan: Continue duloxetine (4) Weight loss: Code(s): R63.4 - Abnormal weight loss Plan: Increase caloric intake discussed with the patient Orders: Orders Hemoglobin A1c 6 Months E55.9 - Vitamin D deficiency, unspecified, E78.5 - Hyperlipidemia, unspecified, F41.9 - Anxiety disorder, unspecified, R73.9 - Hyperglycemia, unspecified TSH reflex Free T4 6 Months E55.9 - Vitamin D deficiency, unspecified, E78.5 - Hyperlipidemia, unspecified, F41.9 - Anxiety disorder, unspecified, R73.9 - Hyperglycemia, unspecified Comprehensive [place]. Panel Fast 6 Months E55.9 - Vitamin D deficiency, unspecified, E78.5 - Hyperlipidemia, unspecified, F41.9 - Anxiety disorder, unspecified, R73.9 - Hyperglycemia, unspecified Complete Blood Count Auto Diff 6 Months E55.9 - Vitamin D deficiency, unspecified, E78.5 - Hyperlipidemia, unspecified, F41.9 - Anxiety disorder, unspecified, R73.9 - Hyperglycemia, unspecified Lipid Panel 6 Months E55.9 - Vitamin D deficiency, unspecified, E78.5 - Hyperlipidemia, unspecified, F41.9 - Anxiety disorder, unspecified, R73.9 - Hyperglycemia, unspecified Vitamin D 25-OH Total 6 Months E55.9 - Vitamin D deficiency, unspecified, E78.5 - Hyperlipidemia, unspecified, F41.9 - Anxiety disorder, unspecified, R73.9 - Hyperglycemia, unspecified Coding Level of Care Code Est Pt Level 4 (33715) Diagnoses Hyperlipidemia E78.5 Hyperglycemia R73.9 Anxiety F41.9 Weight loss R63.4
== END 2024-03-05 15:29 | disposition home or self-care (01) ==
PROVIDERS: PCP Internal Medicine; Visit Provider Internal Medicine
DX: E78.5 Hyperlipidemia, unspecified (principal); R73.9 Hyperglycemia, unspecified; F41.9 Anxiety disorder, unspecified; R63.4 Abnormal weight loss
CPT/HCPCS: 99214

== ENCOUNTER 2024-09-03 07:07 | Outpatient (REF) | payer MEDICARE, SELFPAY ==
[2024-09-03 10:22] LABS: MANUAL DIFF FLAG NO
[2024-09-03 10:29] LABS: Basophils Absolute Auto 0.1 X10*3/uL (0.0-0.2); Basophils Percent Auto 1.3 % (0-2); Eosinophils Absolute Auto 0.1 X10*3/uL (0.0-0.4); Eosinophils Percent Auto 2.1 % (0-4); Hematocrit 39.2 % (37.0-47.0); Hemoglobin 12.7 g/dl (12.0-16.0); Imm Gran Abs Auto 0.01 X10*3/uL (0.00-0.03); Imm Gran Pct Auto 0.3 % (0.0-0.4); Lymphocytes Absolute Auto 1.4 X10*3/uL (1.2-4.9); Lymphocytes Percent Auto 36.8 % (20-40); Mean Corpuscular HGB Conc 32.4 g/dl (31.0-35.0); Mean Corpuscular Hemoglobin 29.5 pg (27.0-33.0); Mean Corpuscular Volume 91.2 fL (80.0-98.0); Mean Platelet Volume 12.4 fL (9.4-12.3); Monocytes Absolute Auto 0.4 X10*3/uL (0.1-1.2); Monocytes Percent Auto 9.3 % (2-11); Neutrophils Percent Auto 50.2 % (45-73); Platelet Count 166 X10*3/uL (160-400); Red Cell Distribution Width 13.2 % (11.0-16.0); White Blood Count 3.9 X10*3/uL (4.8-10.8)
[2024-09-03 10:43] LABS: Estimated Average Glucose 123 mg/dL; Hemoglobin A1C 129.0187 umol/L; Hemoglobin A1c % 5.9 % (<6.0)
[2024-09-03 11:12] LABS: Alanine Aminotransferase 31 U/L (0-31); Albumin Level 4.2 g/dL (3.5-5.0); Alkaline Phosphatase 54 U/L (39-117); Anion Gap 9 (12-20); Aspartate Amino Transferase 29 U/L (5-31); Bilirubin Total 0.9 mg/dL (0.0-1.0); Blood Urea Nitrogen 20 mg/dL (9-16); Calcium 9.7 mg/dL (8.4-10.2); Carbon Dioxide 29 mmol/L (22-29); Chloride 107 mmol/L (96-108); Cholesterol 163 mg/dL (<200); Estimated Glomerular Filt Rate > 60; Glucose Fasting 100 mg/dL (60-99); HDL Cholesterol 73 mg/dL (>40); LDL Cholesterol Calculated 78 mg/dL (<100); Potassium 3.8 mmol/L (3.3-5.1); Sodium 141 mmol/L (135-145); Total Protein 6.3 g/dL (6.5-8.0); Triglycerides 63 mg/dL (<150)
[2024-09-03 11:17] LABS: TSH reflex Free T4 1.73 uIU/mL (0.32-4.0); Vitamin D 25-OH Total 47.2 ng/mL (>30)
== END 2024-09-03 07:08 | disposition home or self-care (01) ==
LOC: HO.HMGCLDS 07:07
PROVIDERS: PCP Internal Medicine; Visit Provider Internal Medicine
DX: E55.9 Vitamin D deficiency, unspecified (principal); E78.5 Hyperlipidemia, unspecified; F41.9 Anxiety disorder, unspecified; R73.9 Hyperglycemia, unspecified
CPT/HCPCS: 36415; 80053; 80061; 82306; 83036; 84443; 85025

== ENCOUNTER 2024-09-19 13:58 | Outpatient (AMB) | payer MEDICARE, SELFPAY ==
[2024-09-19 14:02] VITALS: BP 114/78; PULSE 58; TEMP 36.9; O2SAT 97; BMI 19.0
--- NOTE | 2024-09-19 14:02 | MHC.PC.OV ---
Vital Signs 09/19/24 14:02 Height 5 ft 5 in Weight 114 lb BMI 19.0 BP 114/78 Blood Pressure Location Lt brachial Position Sitting Pulse 58 Pulse Source Pulse Oximeter Temp 98.5 F Temp Source Oral Pulse Oximetry (%) 97 Oxygen Delivery Method Room Air Intake Visit Reasons: Annual PE Intake Note: Pt is here today for PE. Allergies naproxen Allergy (Unknown, Verified 09/19/24 14:02) rash acetaminophen [From Percocet] Allergy (Verified 09/19/24 14:02) Nausea oxycodone [From Percocet] Allergy (Verified 09/19/24 14:02) Nausea Medication List - Last Reconciled 09/19/24 by Leeanne Garcia MD atorvastatin 20 mg PO DAILY cholecalciferol (vitamin D3) 25 mcg PO DAILY clonazepam 1 mg PO BEDTIME diphenoxylate-atropine 2.5-0.025 mg (Lomotil) 1 tab PO QID PRN duloxetine 90 mg PO DAILY ondansetron 4 mg PO Q8H PRN propranolol ER 60 mg PO DAILY sumatriptan 20 mg/actuation 20 mg intranasal Q2H triamcinolone acetonide 0.1% 1 appl topical DAILY turmeric root extract 500 mg PO DAILY [ultimate digestive probiotic 35 billion one capsule a day ] Tobacco use date assessed: 09/19/24 Fall risk assessment: No Falls in past year Last assessed Fall Risk: 09/19/24 Dental Screening Dental Screen Date: 09/19/24 Did you have a dental visit in the last 12 months?: Yes Did you have a dental problem in the last 6 months where you did not have access to dental care?: No Was dental information given to patient?: Patient has dentist HPI Annual PE HPI Details Pt presents for PE. PFSH Medical History Eustachian tube dysfunction Vitamin D deficiency Annual physical exam Osteopenia determined by x-ray Normal colonoscopy Normal Pap smear IBS (irritable bowel syndrome) Anxiety Thyroid nodule History of mammogram Hyperlipidemia Migraine Surgical History H/O colonoscopy History of eyelid surgery Family History Father Diabetes mellitus Mother Breast cancer Alzheimer disease History of mastectomy Social History Housing: House Patient Tobacco Use Status: Never used Tobacco e-Cigarette/Vaping Use: Never Used service: No Current occupational status: employed Cognitive needs: No Hearing needs: No Vision needs: Yes Questionnaire PHQ-9 Over the last 2 weeks, how often have you been bothered by any of the following problems? 1. Little interest or pleasure in doing things: not at all 2. Feeling down, depressed, or hopeless: not at all 3. Trouble falling or staying asleep, or sleeping too much: not at all 4. Feeling tired or having little energy: not at all 5. Poor appetite or overeating: not at all 6. Feeling bad about yourself - or that you are a failure or have let yourself or your family down: not at all 7. Trouble concentrating on things, such as reading the newspaper or watching television: not at all 8. Moving or speaking so slowly that other people could have noticed. Or the opposite - being so fidgety or restless that you have been moving around a lot more than usual: not at all 9. Thoughts that you would be better off or of hurting yourself in some way: not at all Total score: 0 Depression Screening Interpretation: Negative Depression Screening Done: Yes 18834 - PHQ-9 Billing: Yes Source: Developed by Drs. New Farias, Kandis Gifford, Frankie Snell and colleagues, with an educational justine from [employer]. Thrive Questionnaire Date Thrive assessed: 09/19/24 I am a: Patient What is your living situation today?: I have a steady place to live Within the past 12 months, did the food you bought not last and you didn't have the money to get more?: Sometimes True Within the past 12 months, did you worry whether your food would run out before you got money to buy more?: Sometimes True Do you have trouble paying for medicines?: No Do you have trouble getting transportation to medical appointments?: No Do you have trouble paying your heating and electricity bill?: No Do you have trouble taking care of your child, family member or friend?: No Do you have trouble with day-to-day activities such as bathing, preparing meals, shopping, managing finances, etc.?: No Are you currently unemployed and looking for a job?: No Are you interested in more education?: No Please select the resources that you would like help with: None Currently or been in a relationship where the following occur: No concerns reported THRIVE Score: 2 AUDIT C Alcohol Use Questionnaire (AUDIT-C) 1. How often do you have a drink containing alcohol?: Never 3. How often do you have six or more drinks on one occasion?: Never Total Score: 0 DANNA-7 AMB Questionnaire DANNA-7 Date DANNA - 7 assessed: 09/19/24 Feeling nervous, anxious, or on edge: 0 = Not at all Not being able to stop or control worryin = Not at all Worrying too much about different things: 0 = Not at all Trouble relaxin = Not at all Being so restless that it is hard to sit still: 0 = Not at all Becoming easily annoyed or irritable: 0 = Not at all Feeling afraid as if something awful might happen: 0 = Not at all Total DNANA-7 score (0-4 normal; 5-9 mild; 10-14 moderate; 15-21 severe): 0 Source: Developed by Drs. New Farias, Kandis Gifford, Frankie Snell and colleagues, with an educational justine from [employer]. DANNA-7 Assessment Billing DANNA-7 Assessment Tool: DANNA-7 Assessment 18815 Review of Systems Const All systems reviewed & are unremarkable except as noted in HPI and below Eyes Reports no additional complaints ENT Reports no additional complaints Card Reports no additional complaints Resp Reports no additional complaints GI Reports no additional complaints Reports no additional complaints Physical exam (Primary Care) Vital Signs: Last Vital Signs Temp 98.5 F 09/19/24 14:02 Pulse 58 09/19/24 14:02 BP 114/78 09/19/24 14:02 Pulse Ox 97 09/19/24 14:02 Oxygen Delivery Method Room Air 09/19/24 14:02 BMI result Body Mass Index 19.0 Tobacco/Smoking Status: Tobacco use Status Tobacco use date assessed 09/19/24 09/19/24 14:22 Patient Tobacco Use Status Never used Tobacco 09/19/24 14:22 e-Cigarette/Vaping Use Never Used 09/19/24 14:02 PHQ-9: PHQ-9 Score PHQ-9: Total score 0 09/19/24 14:22 Depression Screening Interpretation: Negative Thrive Assessment: Date of Thrive Assessment Date Thrive assessed 09/19/24 09/19/24 14:22 Currently or been in a relationship where the following occur: No concerns reported Const General: no acute distress HENMT Head: Yes normal to inspection Face and sinus: Yes normal facial exam Mouth: Normal oral and palatal mucosa present Throat: Yes posterior oropharynx normal Eyes General: appearance normal, both eyes and all related structures Neck Neck: Yes no lymphadenopathy and Yes supple Resp Effort & Inspection: normal respiratory effort Auscultation: clear to auscultation bilaterally Cardio Rhythm: regular rhythm Heart sounds: S1 normal heart sound present and S2 normal heart sound present GI Inspection: Yes normal to inspection Palpation (GI): Soft to palpation Percussion: Yes normal to percussion Auscultation: normal bowel sounds Extrem General: Yes no clubbing, cyanosis or edema Coding Level of Care Code Est Pt Prev Care >65y(31279) Diagnoses Hyperlipidemia E78.5 Annual physical exam Z00.00 Vitamin D deficiency E55.9 Hyperglycemia R73.9 Additional Codes DANNA-7 Assessment Billing - DANNA-7 Assessment Tool: DANNA-7 Assessment 91714 ([id number]) PHQ-9 - 25590 - PHQ-9 Billing: Yes ([id number]) Assessment & Plan Assessment & Plan (1) Hyperlipidemia: Code(s): E78.5 - Hyperlipidemia, unspecified Category: Medical Plan: cont statin (2) Annual physical exam: Code(s): Z00.00 - Encounter for general adult medical examination without abnormal findings Category: Medical Plan: well balanced diet, regular exercise discussed with the patient she is up-to-date with the mammogram had negative Cologuard 2 years ago (3) Vitamin D deficiency: Code(s): E55.9 - Vitamin D deficiency, unspecified Category: Medical Plan: Continue vitamin-D (4) Hyperglycemia: Comment: A1C 5.7 09/21 Code(s): R73.9 - Hyperglycemia, unspecified Category: Medical Plan: A1c is 5.9, continue ADA diet regular exercise return in 1 year with a fasting labs before Orders: Orders Complete Blood Count Auto Diff 1 Year E55.9 - Vitamin D deficiency, unspecified, E78.5 - Hyperlipidemia, unspecified, R73.9 - Hyperglycemia, unspecified, Z00.00 - Encounter for general adult medical examination without abnormal findings Lipid Panel 1 Year E55.9 - Vitamin D deficiency, unspecified, E78.5 - Hyperlipidemia, unspecified, R73.9 - Hyperglycemia, unspecified, Z00.00 - Encounter for general adult medical examination without abnormal findings Vitamin D 25-OH Total 1 Year E55.9 - Vitamin D deficiency, unspecified, E78.5 - Hyperlipidemia, unspecified, R73.9 - Hyperglycemia, unspecified, Z00.00 - Encounter for general adult medical examination without abnormal findings Microalbumin, Random (w Creat) 1 Year E55.9 - Vitamin D deficiency, unspecified, E78.5 - Hyperlipidemia, unspecified, R73.9 - Hyperglycemia, unspecified, Z00.00 - Encounter for general adult medical examination without abnormal findings Comprehensive [place]. Panel Fast 1 Year E55.9 - Vitamin D deficiency, unspecified, E78.5 - Hyperlipidemia, unspecified, R73.9 - Hyperglycemia, unspecified, Z00.00 - Encounter for general adult medical examination without abnormal findings Hemoglobin A1c 1 Year E55.9 - Vitamin D deficiency, unspecified, E78.5 - Hyperlipidemia, unspecified, R73.9 - Hyperglycemia, unspecified, Z00.00 - Encounter for general adult medical examination without abnormal findings
--- OUTSIDE RECORDS SUMMARY | 2024-09-19 16:16 | XMS_ITS | Clinical Summary ---
Author Organization [facility] ity Address [address] [place] [address] Care Team Providers Care Drapery Cutter Machine Name Role Phone Leeanne Garcia MD Primary Care Provider [phone] Medical History Medical History Date Comments Depression DX:Depression Anemia DX:Anemia Anxiety DX:Anxiety Social History Tobacco Use Types Packs/Day Years Used Date Smoking Tobacco: Never Smokeless Tobacco: Never Alcohol Use Standard Drinks/Week Comments Yes 0 (1 standard drink = 0.6 oz pur e alcohol) Sex and Gender Information Value Date Recorded Sex Assigned at Not on file Gender Identity Not on file Sexual Orientation Not on file Obstetrics History Last Filed Vital Signs Vital Sign Reading Time Taken Comments Blood Pressure 100/62 08/03/2023 10:58 AM EST Si tting L Arm Pulse 75 08/03/2023 10:58 AM EST Temperature - - Respiratory Rate - - Oxygen Saturation - - Inhaled Oxygen Concentration - - Weight 53.5 kg (118 lb) 08/03/2023 10:58 AM EST Height 165.1 cm (5' 5 ) 08/03/2023 10:58 AM EST Body Mass Index 19.64 08/03/2023 10:58 AM EST Plan of Treatment Health Maintenance Due Date Last Done Comments Breast Cancer Screening 1951 DTaP,Tdap,and Td Vaccines (1 - Tdap) 1970 Zoster Vaccines (1 of 2) 2001 Pneumococcal Vaccine: 65+ Ye ars (1 of 1 - PCV) 2016 Cholesterol Screening (Lipid Panel) 07/27/2022 Colorectal Cancer Screening: Colonoscopy 07/27/2022 Depression Screening 07/27/2022 Falls Risk Assessment 07/27/2022 Hepatitis C Screening 07/27/2022 Osteoporosis Screening (Bone Density Screening) 07/27/2022 Social Influencers of Health Screening 07/27/2022 COVID-19 Vaccine (2023-2 5 season) 2024 Influenza Vaccine (#1) 2024 RSV Immunization Patients 60 + Years Old (1 - 1-dose 75+ series) 2026 HIB Vaccines Aged Out No longer eligi ble based on patient's age to complete this topic HPV Vaccines Aged Out No longer eligi ble based on patient's age to complete this topic Hepatitis A Vaccines Aged Out No long er eligible based on patient's age to complete this topic Hepatitis B Vaccines Aged Out No long er eligible based on patient's age to complete this topic IPV Vaccines Aged Out No longer eligi ble based on patient's age to complete this topic MMR Vaccines Aged Out No longer eligi ble based on patient's age to complete this topic Meningococcal ACWY Vaccine Aged Out N o longer eligible based on patient's age to complete this topic RSV Immunization Patients Un bertin 20 months Aged Out No longer eligible b ased on patient's age to complete this topic Varicella Vaccines Aged Out No longer eligible based on patient's age to complete this topic Care Teams Drapery Cutter Machine Relationship Specialty Start Date End Date Leeanne Garcia MD PCP - General 08/19/22
== END 2024-09-19 14:52 | disposition home or self-care (01) ==
PROVIDERS: PCP Internal Medicine; Visit Provider Internal Medicine
DX: E78.5 Hyperlipidemia, unspecified (principal); Z00.00 Encounter for general adult medical examination without abnormal findings; E55.9 Vitamin D deficiency, unspecified; R73.9 Hyperglycemia, unspecified

== ENCOUNTER → 2024-09-19 13:58 | Outpatient (BNVA) | payer MEDICARE, SELFPAY | PROVIDERS: PCP Internal Medicine; Visit Provider Internal Medicine | DX: Z00.00 Encounter for general adult medical examination without abnormal findings (principal); E78.5 Hyperlipidemia, unspecified; E59 Dietary selenium deficiency; R73.9 Hyperglycemia, unspecified | CPT/HCPCS: 96127; 99397 ==

== ENCOUNTER 2025-08-07 16:01 | Outpatient (AMB) | payer MEDICARE, SELFPAY ==
[2025-08-07 16:15] VITALS: BP 118/76; PULSE 79; TEMP 36.8; O2SAT 99; BMI 18.8
--- NOTE | 2025-08-07 16:15 | AM.OFFWIN_ITS ---
Intake Vital Signs 08/07/25 16:15 Height 5 ft 5 in Weight 113 lb BMI 18.8 BP 118/76 Blood Pressure Location Lt brachial Position Sitting Pulse 79 Pulse Source Pulse Oximeter Temp 98.2 F Temp Source Oral Pulse Oximetry (%) 99 Oxygen Delivery Method Room Air Intake Visit Reasons: EP pressure and pain in face Intake Note: pt presents with sinus and face pain pressure for 3 weeks Patient Tobacco Use Status: Never used Tobacco Allergies naproxen Allergy (Unknown, Verified 08/07/25 16:16) rash acetaminophen (From Percocet) Allergy (Verified 08/07/25 16:16) Nausea oxycodone (From Percocet) Allergy (Verified 08/07/25 16:16) Nausea Do you need a note to return to daycare/school/sports/work: No HPI HPI Comments History of Present Illness Details History of Present Illness - The patient is a 75 year old female pr esenting for evaluation of symptoms concerning for a sinus infection. - Her symptoms began three weeks ago as a common cold. - She now reports pounding sinus pressur e, a burning sensation in her nasal area, and pressure behind her eyes. - Associated symptoms include a mild cou gh. - She has been self-treating with over-t he-counter Sudafed and Delsym, which she reports have been effective. - The patient reports consuming a health y diet with many vegetables. - She has been unable to visit her [facility] for the last three weeks due to her illness. - She denies fever, chills, CP, SOB, aidan sea, vomiting, or abdominal pain. Physical Exam General: Cooperative, healthy appearing, comfortable, no acute distress and well developed Head: Normal to inspection Ears: Hearing grossly normal bilaterally. No tragus or mastoid tenderness noted. Auditory canals clear bilaterally. TM's normal, not bulging. No fluid noted. Nose: Normal external nose present. Moist mucosa. Turbinates normal bilaterally, not boggy. Face and sinus: Tenderness to palpation of the frontal and maxillary sinuses bilaterally. Neck: Normal visual inspection and Yes full ROM. No lymphadenopathy noted. Respiratory: Normal respiratory effort and able to speak in complete sentences. Clear to auscultation bilaterally. No w/r/r noted. Cardiovascular: Regular rate and rhythm. Normal S1 and S2. No m/r/g noted. Skin: No rashes or lesions noted [facility] Medical History Eustachian tube dysfunction Vitamin D deficiency Annual physical exam Osteopenia determined by x-ray Normal colonoscopy Normal Pap smear IBS (irritable bowel syndrome) Anxiety Thyroid nodule History of mammogram Hyperlipidemia Migraine Surgical History H/O colonoscopy History of eyelid surgery Family History Father Diabetes mellitus Mother Breast cancer Alzheimer disease History of mastectomy Social History Housing: House Patient Tobacco Use Status: Never used Tobacco e-Cigarette/Vaping Use: Never Used service: No Current occupational status: employed Cognitive needs: No Hearing needs: No Vision needs: Yes Review of Systems Const All systems reviewed & are unremarkable except as noted in HPI and below Physical Exam Vital Signs: Last Vital Signs Temp 98.2 F 08/07/25 16:15 Pulse 79 08/07/25 16:15 BP 118/76 08/07/25 16:15 Pulse Ox 99 08/07/25 16:15 Oxygen Delivery Method Room Air 08/07/25 16:15 BMI result Body Mass Index 18.8 Assessment & Plan Assessment & Plan (1) Sinus congestion: Code(s): R09.81 - Nasal congestion Plan Most likely sinusitis vs allergic rhinitis vs viral illness plan - tylenol or motrin as needed for pain or fever - prednisone burst for 5 days - augmentin BID for 7 days - steam showers can help or a nasal flush - follow up with PCP Medications: New amoxicillin-pot clavulanate 875-125 mg 1 tab PO Q12H 14 tabs 0RF prednisone 40 mg (2 x 20 mg) PO DAILY 10 tabs 0RF 5 days Coding Level of Care Code Est Pt Level 3 (08861) Diagnoses Sinus congestion R09.81
--- OUTSIDE RECORDS SUMMARY | 2025-08-08 00:44 | XMS_ITS | Encounter Summary ---
Author Organization [facility] Address [address] [place] [address] Phone Care Team Providers Care Teacher Adult Education Name Role Phone Leeanne Garcia MD Primary Care Provider [phone] Encounter Details Date Type Department Care Team (Late st Contact Info) Description 06/29/2020 Procedure Pass [facility], [address] [address] Social History Tobacco Use Types Packs/Day Years Used Date Smoking Tobacco: Never Smokeless Tobacco: Never Alcohol Use Standard Drinks/Week Comments Yes 0 (1 standard drink = 0.6 oz pur e alcohol) Comments No Sex and Gender Information Value Date Recorded Sex Assigned at Not on file Legal Sex Female 10:00 PM EDT Gender Identity Not on file Sexual Orientation Not on file documented as of this encounter Plan of Treatment Not on file documented as of this encounter Visit Diagnoses Not on filedocumented in this encounter Care Teams Teacher Adult Education Relationship Specialty Start Date End Date Leeanne Garcia MD [address] [place] [address] [place] [address] PCP - General Internal Medicine 07/02/19 documented as of this encounter Additional Source Comments The information contained in this document represents components of the legal health record. It is not the complete legal health record.[facility]
--- OUTSIDE RECORDS SUMMARY | 2025-08-08 00:44 | XMS_ITS | Clinical Summary ---
[facility] [address] [place] [address] Care Team Providers Care Virtual Reality Specialist Name Role Phone Leeanne Garcia MD Primary Care Provider [phone] Medical History Medical History Date Comments Depression DX:Depression Anemia DX:Anemia Anxiety DX:Anxiety Social History Tobacco Use Types Packs/Day Years Used Date Smoking Tobacco: Never Smokeless Tobacco: Never Alcohol Use Standard Drinks/Week Comments Yes 0 (1 standard drink = 0.6 oz pur e alcohol) Comments Unknown Sex and Gender Information Value Date Recorded Sex Assigned at Not on file Legal Sex Female 11:03 AM EST Gender Identity Not on file Sexual Orientation Not on file Last Filed Vital Signs Vital Sign Reading [...] Health Maintenance Due Date Last Done Comments Colorectal Cancer Screening: Colonoscopy 1951 DTaP,Tdap,and Td Vaccines (1 - Tdap) 1970 Pneumococcal Vaccine: 50+ Ye ars (1 of 1 - PCV) 2001 Zoster Vaccines (1 of 2) 2001 Cholesterol Screening (Lipid Panel) 07/27/2022 Falls Risk Assessment 07/27/2022 Hepatitis C Screening 07/27/2022 Osteoporosis Screening (Bone Density Screening) 07/27/2022 Social Influencers of Health Screening 07/27/2022 Depression Screening 08/29/2024 COVID-19 Vaccine (1 - 2024-2 6 season) 2025 Influenza Vaccine (#1) 2025 Breast Cancer Screening 06/15/2026 06/15/2024 RSV Immunization Adult Patie nts (1 - 1-dose 75+ series) 2026 HIB [...] patient's age to complete this topic Meningococcal B Vaccine Aged Out No l onger eligible based on patient's age to complete this topic RSV Immunization Patients Un bertin 20 months Aged Out No longer eligible b ased on patient's age to complete this topic Varicella Vaccines Aged Out No longer eligible based on patient's age to complete this topic Care Teams Virtual Reality Specialist Relationship Specialty Start Date End Date Leeanne Garcia MD PCP - General 08/19/22
--- OUTSIDE RECORDS SUMMARY | 2025-08-08 00:44 | XMS_ITS | Encounter Summary ---
Author Organization [facility] Address [address] [facility] [address] [place] [address] Phone Care Team Providers Care Pharmacy Technologist Name Role Phone Leeanne Garcia MD Primary Care Provider [phone] Encounter Details Date Type Department Care Team (Late st Contact Info) Description 03/05/2024 Procedure Pass [facility], [address] [id number] Social History Tobacco Use Types Packs/Day Years Used Date Smoking Tobacco: Never Smokeless Tobacco: Never Alcohol Use Standard Drinks/Week Comments Yes 0 (1 standard drink = 0.6 oz pur e alcohol) Education Answer Date Recorded Are you interested in more education? Not on praveen e 12/24/2022 Are you concerned about learning? Not on file 12/24/2022 No 12/24/2022 No 12/24/2022 Digital Access Answer Date Recorded No 01/22/2023 No 01/22/2023 Reliable internet access at home? Not on file 01/22/2023 Device with a working camera? Not on file Comments No Sex and Gender Information Value Date Recorded Sex Assigned at Not on file Legal Sex Female 10:00 PM EDT Gender Identity Not on file Sexual Orientation Not on file documented as of this encounter Plan of Treatment Not on file documented as of this encounter Visit Diagnoses Not on filedocumented in this encounter Care Teams Pharmacy Technologist Relationship Specialty Start Date End Date Leeanne Garcia MD [address] [facility] [place] [address] PCP - General Internal Medicine 11/4/19 documented as of this encounter Additional Source Comments The information contained in this document represents components of the legal health record. It is not the complete legal health record.[facility]
--- OUTSIDE RECORDS SUMMARY | 2025-08-08 00:44 | XMS_ITS | Clinical Summary ---
Author Organization [facility] Address [address] [facility] [address] [place] [address] Phone Care Team Providers Care Glycerin Supervisor Name Role Phone Leeanne Garcia MD Primary Care Provider [phone] Allergies Active Allergy Reactions Criticality Noted Date Comments Naproxen Sodium 07/02/2019 Medications propranolol (INDERAL) 10 MG immediate release tablet Take 10 mg by mouth 3 (three) times a day. Active simvastatin (ZOCOR) 5 MG tablet Take 10 mg by mouth nightly at bedtime. Active cholecalciferol (VITAMIN D3) 10,000 unit tablet Take 10,000 Units by mouth daily. Active glucosamine 500 mg Cap Take 500 mg by mouth 3 (three) times a day. Active multivitamin Liqd Take 5 mL by mouth daily. Active Active Problems Problem Noted Date Diagnosed Date Family history of breast cancer in mother 2018 Overview (07/02/2019): Maternal hx breast cancer age late 60s Assessment & Plan (07/02/2019 3:52 PM EST): Lorena will resume mammograms and will try to keep to a yearly schedule. Menopausal vaginal dryness 07/02/2019 Assessment & Plan (07/02/2019 3:52 PM EST): We discussed strategies to improve vaginal dryness including no scented products, scant or no unscented soap only, lubes with sexual activity, and vaginal estrogen as desired/indicated. She defers estrogen for now and will call if wants to pursue. Family History Medical History Relation Comments Diabetes Father Stroke Father Bladder Cancer Maternal Grandfather Alzheimer's disease Mother Breast cancer Mother No Known Problems Paternal Grandfather Stroke Paternal Grandmother Relation Status Comments Father Maternal Grandfather Mother Paternal Grandfather Paternal Grandmother Social History Tobacco Use Types Packs/Day Years [...] Sign Reading Time Taken Comments Blood Pressure 104/66 07/02/2019 2:26 PM EST Pulse - - Temperature - - Respiratory Rate - - Oxygen Saturation - - Inhaled Oxygen Concentration - - Weight 55.3 kg (122 lb) 07/02/2019 2:26 PM EST Height 165.1 cm (5' 5 ) 07/02/2019 2:26 PM EST Body Mass Index 20.3 07/02/2019 2:26 PM EST Plan of Treatment Health Maintenance Due Date Last Done Comments LIPID PANEL 1951 DEPRESSION SCREENING 1963 HEPATITIS C SCREENING 1969 COLOGUARD 1996 COLONOSCOPY 1996 COLORECTAL CANCER SCREENING 1996 FIT TEST 1996 FOBT 1996 SIGMOIDOSCOPY 1996 VIRTUAL COLONOSCOPY 1996 ZOSTER VACCINES (2 of 3) 03/03/2016 01/07/2016 OSTEOPOROSIS SCREENING INITI AL (ONE-TIME) 2016 Adult Td,Tdap Booster 08/29/2020 08/29/2010 INFLUENZA VACCINE (#1) 2025 06/14/2019 COVID-19 VACCINE (3 - 2024-2 6 season) 2025 10/01/2020, 09/03/2020 MAMMOGRAM 06/15/2026 06/15/2024, 09/10/2022, 07/29/2020 RSV VACCINE (1 - 1-dose 75+ series) 2026 PNEUMOCOCCAL VACCINES (50+ years) Completed 06/04/2019, 04/05/2018 SMOKING STATUS SCREENING (On ce After 26 Yrs) Completed 06/15/2024 HEPATITIS A VACCINES Aged Out No long er eligible based on patient's age to complete this topic HIB VACCINES Aged Out No longer eligi ble based on patient's age to complete this topic MENINGOCOCCAL VACCINES (ACWY) Aged Out No longer eligible based on patient's age to complete this topic MENINGOCOCCAL VACCINES (B) Aged Out N o longer eligible based on patient's age to complete this topic Medical Devices Not on file Procedures Procedure Name Priority Date/Time Associated Diagnosis Comments BI MAMMOGRAM SCREENING WITH TOMOSYNTHESIS WITH CAD (BILATERAL) Routine 06/15/2024 1:28 PM EDT Breast screening from Last 3 Months or Most Recently Relevant to Health Maintenance Results * BI MAMMOGRAM SCREENING WITH TOMOSYNTHESIS WITH CAD (BILATERAL) (06/15/2024 1:28 PM EDT) Anatomical Region Laterality Modality Breast Left, Breast Right, Breast Bilateral Bila teral Mammography 06/19/2024 11:0 1 AM EDT Impressions 06/19/2024 11:02 AM EDT No mammographic evidence of malignancy in either breast. Annual screening mammography is recommended. BI-RADS 1 NEGATIVE The patient will be notified of the results and recommendations. Narrative 06/19/2024 11:02 AM EDT BI MAMMOGRAM SCREENING WITH TOMOSYNTHESIS WITH CAD (BILATERAL) Additional patient information: Screening. COMPARISON: Comparison is made with relevant prior imaging. Breast composition: The breast tissue is heterogeneously dense which may obscure small masses. FINDINGS: No abnormal masses, suspicious calcifications, or other significant findings are identified mammographically in either breast. Procedure Note Vicky Alcantar MD - 06/19/2024 BI MAMMOGRAM SCREENING WITH TOMOSYNTHESIS WITH CAD (BILATERAL) Additional patient information: Screening. COMPARISON: Comparison is made with relevant prior imaging. Breast composition: The breast tissue is heterogeneously dense which mayobscure small masses. FINDINGS: No abnormal masses, suspicious calcifications, or other significantfindings are identified mammographically in either breast. IMPRESSION: No mammographic evidence of malignancy in either breast. Annual screening mammography is recommended. BI-RADS 1 NEGATIVE The patient will be notified of the results and recommendations. us Provider Not In System PhD IMG MG EXAMS Final Result from Last 3 Months or Most Recently Relevant to Health Maintenance Insurance [place] [place] BLUE [place]AC[place] [employer] [place] [place] [address] [place] [address] MEDICARE PPO BLUE REPLACEMENT [facility] MEDICARE PPO BLUE [place] [address] [place] [address] MEDICARE PPO BLUE REPLACEMENT [employer] [place] [place] BLUE REPLACEMENT Care Teams Glycerin Supervisor Relationship Specialty Start Date End Date Leeanne Garcia MD [address] [place] [address] PCP - General Internal Medicine 07/02/19 Additional Source Comments The information contained in this document represents components of the legal health record. It is not the complete legal health record.[facility]
--- OUTSIDE RECORDS SUMMARY | 2025-08-08 00:44 | XMS_ITS | Encounter Summary ---
Author Organization [facility] Address [address] [facility] [address] [place] [address] Phone Care Team Providers Care Apparel Stock Checker Name Role Phone Leeanne Garcia MD Primary Care Provider [phone] Encounter Details Date Type Department Care Team (Late st Contact Info) Description 09/02/2022 Procedure Pass [facility], [address] [address] Social History Tobacco Use Types Packs/Day Years [...] on filedocumented in this encounter Care Teams Apparel Stock Checker Relationship Specialty Start Date End Date Leeanne Garcia MD [address] [place] [address] [facility] [place] [address] PCP - General Internal Medicine 07/02/19 documented as of this encounter Additional Source Comments The information contained in this document represents components of the legal health record. It is not the complete legal health record.[facility]
== END 2025-08-07 16:44 | disposition home or self-care (01) ==
PROVIDERS: PCP Internal Medicine; Visit Provider Physician Assistant Medical
DX: R09.81 Nasal congestion (principal)

== ENCOUNTER → 2025-08-07 16:01 | Outpatient (BNVA) | payer MEDICARE, SELFPAY | PROVIDERS: PCP Internal Medicine; Visit Provider Physician Assistant Medical | DX: R09.81 Nasal congestion (principal) | CPT/HCPCS: 99212 ==